=== PATIENT | male | born 1960 | race Hispanic/Latino ===

== ENCOUNTER → 2021-03-07 | Day surgery (SDC) | payer BC ==
[~2021-03-07] MED LIST: AMLODIPINE BESY10 MG PO; ASPIRIN81 MG PO; BALANCED SALT SOLN (OPTH) 15 ML BTL IO ONE; CYCLOPENTOLATE HCL 1% OPTH SOLN 2ML BTL ONE; EPINEPHRINE HCL 1:1000 1ML 1 MG/ML AMP ONE; FINASTERIDE5 MG PO; HYDROCHLOROTHIA25 MG PO; LIDOCAINE HCL-PF 4% 40 MG/1 ML 5ML AMP ONE; MEN'S 50 PLUS1 EACH PO; MOXIFLOXACIN HCL(OPTH) 3 ML BTL ONE; OMEGA 3 1,0001 EACH PO; PHENYLEPHRINE HCL 2 ML DROPS ONE; POVIDONE IODINE 5% (OPTH) 30 ML BTL ONE; TROPICAMIDE 1% OPTH SOLN 3ML ONE; VITAMIN C500 MG PO; ZESTRIL10 MG PO
== END | disposition home or self-care (01) ==
LOC: OR 05:10
PROVIDERS: ATTEND Ophthalmology
DX: H25.11 Age-related nuclear cataract, right eye (principal); Z96.1 Presence of intraocular lens; I10 Essential (primary) hypertension; Z88.2 Allergy status to sulfonamides; Z01.810 Encounter for preprocedural cardiovascular examination; Z79.82 Long term (current) use of aspirin
CPT/HCPCS: 66984; 93005; J0171